=== PATIENT | male | born 1965 | race Caucasian/White ===

== ENCOUNTER 2020-07-19 13:40 | Outpatient (CLI) | payer OTHER ==
--- NOTE | 2020-07-19 18:57 | ULT ---
BILATERAL LOWER EXTREMITY ARTERIAL DOPPLER STUDY: 07/19/20 INDICATIONS: Claudication. Lower extremity pain. RIGHT LOWER EXTREMITY: Right common femoral artery shows a biphasic waveform with slightly reduced velocities at 88 cm/s sys tolic. Profunda shows significant increased velocities indicating stenosis with a biphasic waveform. The right superficial femoral artery is monophasic throughout its course with reduced velocities. Right popliteal artery, anterior tibial artery, posterior tibial artery, and dorsalis pedis all show monophasic waveform with reduced velocities. LEFT LOWER EXTREMITY: Left common femoral artery shows a biphasic waveform with velocities recorded at 137 cm/s systolic. Profunda is biphasic. The left superficial femoral artery is triphasic with symmetric velocities. Left popliteal artery is triphasic. The left anterior tibial artery and dorsalis pedis artery are both monophasic with reduced velocities . The left posterior tibial artery is triphasic with normal velocities recorded at 96 cm/s systolic. IMPRESSION: 1. Doppler study shows evidence of significant peripheral vascular disease in the right lower ex tremity with evidence of proximal stenosis. Iliac artery disease should be considered. 2. The left lower extremity shows mild disease below the knee on the left primarily involving th e anterior tibial artery as described above. POS: [facility]W
== END 2020-07-19 13:41 | disposition home or self-care (01) ==
LOC: ULT 13:40
PROVIDERS: ATTEND General Practice
DX: I70.211 Atherosclerosis of native arteries of extremities with intermittent claudication, right leg (principal)
CPT/HCPCS: 93923

== ENCOUNTER 2020-11-28 11:01 | Outpatient (CLI) | payer OTHER | END 2020-11-28 11:02 | disposition home or self-care (01) | LOC: BICMRI 11:01 | PROVIDERS: ATTEND Orthopaedic Surgery | DX: M47.816 Spondylosis without myelopathy or radiculopathy, lumbar region (principal) | CPT/HCPCS: 72148 ==

== ENCOUNTER 2020-12-06 08:01 | Outpatient (CLI) | payer OTHER ==
[2020-12-06] MEDS ORDERED: Iopamidol-370 76% 500 ML 1 ML ONE (13:38)
== END 2020-12-06 08:02 | disposition home or self-care (01) ==
LOC: BICCT 08:01
PROVIDERS: ATTEND Internal Medicine Cardiovascular Disease
DX: I73.9 Peripheral vascular disease, unspecified (principal); I71.4 Abdominal aortic aneurysm, without rupture; I77.1 Stricture of artery; K80.20 Calculus of gallbladder without cholecystitis without obstruction; K42.9 Umbilical hernia without obstruction or gangrene
CPT/HCPCS: 75635; Q9967

== ENCOUNTER 2021-02-22 11:17 | Emergency (ER) | payer OTHER ==
[2021-02-22 12:12] LABS: #Basophils 0.1 thou/uL (0.0-0.2); #Eosinphils 0.1 thou/uL (0.0-0.7); #Lymphocytes 2.1 thou/uL (1.20-3.40); #Monocytes 0.9 thou/uL (0.11-0.59); #Neutrophils 7.2 thou/uL (1.40-6.50); %Basophils 0.8 % (0.0-1.0); %Eosinophils 1.2 % (0.0-10.0); %Lymphocytes 20.3 % (21.0-51.0); %Monocytes 8.7 % (0.0-10.0); Hemoglobin 14.6 g/dL (14.0-18.0); Mean Corpuscular HGB CONC 32.8 g/dL (32.0-36.0); Mean Corpuscular Hemoglobin 30.1 pg (27.0-31.0); Mean Corpuscular Volume 91.5 fL (78.0-98.0); Mean Platelet Volume 8.9 fL (7.4-10.4); Platelet Count 188 thou/uL (130-400); RBC Distribution Width 12.4 % (11.5-14.5); Red Blood Cell (RBC) Count 4.87 mill/uL (4.70-6.10); White Blood Cell (WBC) Count 10.4 thou/uL (4.8-10.8)
[2021-02-22 12:32] LABS: ALT (SGPT) 31 U/L (8-55); AST (SGOT) 23 U/L (5-34); Albumin 4.2 g/dL (3.5-5.0); Alkaline Phosphatase 69 U/L (40-110); Anion Gap 10 mmol/L (10-20); BUN (Urea Nitrogen) 11 mg/dL (8.4-25.7); Bilirubin, Total 0.5 mg/dL (0.2-1.2); Calc. Creatinine Clearance 0 mL/min (70-130); Calcium 9.6 mg/dL (7.8-10.44); Carbon Dioxide 26 mmol/L (22-29); Chloride 104 mmol/L (98-107); Globulin 2.9 g/dL (2.4-3.5); Glucose 104 mg/dL (70-105); Potassium 4.1 mmol/L (3.5-5.1); Protein, Total 7.1 g/dL (6.0-8.3); Sodium 136 mmol/L (136-145)
[2021-02-22] MEDS ORDERED: HYDROcodone/Acetaminophen 5/325 mg Tablet ONE (12:32)
[2021-02-22] MEDS ORDERED: Boostrix 0.5 ML (Tdap) VIAL ONE (12:32)
== END 2021-02-22 13:00 | disposition home or self-care (01) ==
LOC: ERS 11:17
DX: K04.7 Periapical abscess without sinus (principal); M54.2 Cervicalgia; K02.9 Dental caries, unspecified; K03.81 Cracked tooth; H57.11 Ocular pain, right eye; I10 Essential (primary) hypertension; F17.210 Nicotine dependence, cigarettes, uncomplicated; Z79.899 Other long term (current) drug therapy
CPT/HCPCS: 36415; 80053; 83605; 85025; 90471; 90715; 93005; 94760

== ENCOUNTER 2021-04-24 12:24 | Outpatient (CLI) | payer OTHER ==
[2021-04-24 13:35] LABS: Mean Corpuscular HGB CONC 33.5 g/dL (32.0-36.0); Mean Corpuscular Hemoglobin 29.9 pg (27.0-33.0); Mean Corpuscular Volume 89.2 fl (81.2-95.1); Mean Platelet Volume 11.5 fl (7.4-10.4); Platelet Count 189 10x3/uL (150-450); RBC Distribution Width 13.3 % (11.5-14.5); Red Blood Cell (RBC) Count 5.02 10x6/uL (4.32-5.72); White Blood Cell (WBC) Count 12.6 10x3/uL (3.5-10.5)
[2021-04-24 13:52] LABS: Anion Gap 15 mmol/L (10-20); BUN (Urea Nitrogen) 16 mg/dL (8.4-25.7); Calc. Creatinine Clearance 0 mL/min (70-130); Calcium 10.4 mg/dL (7.8-10.44); Carbon Dioxide 26 mmol/L (22-29); Chloride 104 mmol/L (98-107); Glucose 118 mg/dL (70-105); Potassium 4.7 mmol/L (3.5-5.1); Sodium 140 mmol/L (136-145)
[2021-04-24 23:48] LABS: SARS-CoV-2 PCR by NAA Not Detected (NotDetected)
== END 2021-04-24 12:25 | disposition home or self-care (01) ==
LOC: LABBT 12:24
PROVIDERS: ATTEND Thoracic Surgery (Cardiothoracic Vascular Surgery)
DX: Z01.812 Encounter for preprocedural laboratory examination (principal); I73.9 Peripheral vascular disease, unspecified; Z20.822 Contact with and (suspected) exposure to COVID-19
CPT/HCPCS: 80048; 85027; U0003; U0005

== ENCOUNTER 2021-04-27 10:10 | Day surgery (SDC) | payer OTHER ==
[2021-04-26 10:03] VITALS: BMI 32.3
[2021-04-27] MEDS ORDERED: Lidocaine 1% (PF) 30 ML VIAL ONE (11:13)
[2021-04-27] MEDS ORDERED: Midazolam HCl 2 mg/2 ml Vial ONE ×2 (11:32→12:07)
[2021-04-27] MEDS ORDERED: Fentanyl 100 MCG/2 ML VIAL ONE ×2 (11:32→12:58)
[2021-04-27] MEDS ORDERED: Heparin 10,000 UNITS/ 10 ML VIAL ONE (12:03)
[2021-04-28] MEDS ORDERED: Clopidogrel Bisulfate 75 MG TAB PO SCH (09:00)
== END 2021-04-27 16:00 | disposition home or self-care (01) ==
LOC: SDC 10:10
PROVIDERS: ATTEND Thoracic Surgery (Cardiothoracic Vascular Surgery)
PROC: 047K34Z Dilation of Right Femoral Artery with Drug-eluting Intraluminal Device, Percutaneous Approach (ICD-10-PCS; principal; 2021-04-27)
PROC: B4101ZZ Fluoroscopy of Abdominal Aorta using Low Osmolar Contrast (ICD-10-PCS; principal; 2021-04-27)
DX: I70.211 Atherosclerosis of native arteries of extremities with intermittent claudication, right leg (principal); I71.4 Abdominal aortic aneurysm, without rupture; E78.00 Pure hypercholesterolemia, unspecified; M10.9 Gout, unspecified; I25.2 Old myocardial infarction; I10 Essential (primary) hypertension; I25.10 Atherosclerotic heart disease of native coronary artery without angina pectoris; F17.210 Nicotine dependence, cigarettes, uncomplicated; E78.2 Mixed hyperlipidemia; Z79.82 Long term (current) use of aspirin; Z79.899 Other long term (current) drug therapy
CPT/HCPCS: 36140; 36247; 37224; 75625; 75710; 85347; 99152; 99153; C1725; J1644; J2001; J2250; J3010

== ENCOUNTER 2021-06-20 12:02 | Outpatient (CLI) | payer OTHER | END 2021-06-20 12:03 | disposition home or self-care (01) | LOC: TBSIIMAG 12:02 | PROVIDERS: ATTEND Specialist | DX: M47.22 Other spondylosis with radiculopathy, cervical region (principal) | CPT/HCPCS: 72141 ==

== ENCOUNTER 2021-12-18 10:23 | Emergency (ER) | payer OTHER ==
[2021-12-18 10:55] LABS: #Basophils 0.1 thou/uL (0.0-0.2); #Eosinphils 0.1 thou/uL (0.0-0.7); #Lymphocytes 1.5 thou/uL (1.20-3.40); #Monocytes 0.8 thou/uL (0.11-0.59); #Neutrophils 7.3 thou/uL (1.40-6.50); %Basophils 0.5 % (0.0-1.0); %Eosinophils 1.3 % (0.0-10.0); %Neutrophils 75.2 % (42.0-75.0); Hemoglobin 14.8 g/dL (14.0-18.0); Mean Corpuscular HGB CONC 33.3 g/dL (32.0-36.0); Mean Corpuscular Hemoglobin 31.3 pg (27.0-31.0); Mean Corpuscular Volume 94.2 fL (78.0-98.0); Mean Platelet Volume 8.1 fL (7.4-10.4); Platelet Count 213 thou/uL (130-400); RBC Distribution Width 12.6 % (11.5-14.5); Red Blood Cell (RBC) Count 4.73 mill/uL (4.70-6.10); White Blood Cell (WBC) Count 9.7 thou/uL (4.8-10.8)
[2021-12-18 11:17] LABS: ALT (SGPT) 35 U/L (8-55); AST (SGOT) 31 U/L (5-34); Albumin 4.4 g/dL (3.5-5.0); Alkaline Phosphatase 54 U/L (40-110); Anion Gap 13 mmol/L (10-20); BUN (Urea Nitrogen) 17 mg/dL (8.4-25.7); Bilirubin, Total 0.4 mg/dL (0.2-1.2); Calc. Creatinine Clearance 0 mL/min (70-130); Calcium 9.6 mg/dL (7.8-10.44); Carbon Dioxide 23 mmol/L (22-29); Chloride 105 mmol/L (98-107); Glucose 107 mg/dL (70-105); Lipase 58 U/L (8-78); Potassium 4.7 mmol/L (3.5-5.1); Protein, Total 7.4 g/dL (6.0-8.3); Sodium 136 mmol/L (136-145)
[2021-12-18] MEDS ORDERED: Famotidine 20 MG TAB ONE (12:47)
[2021-12-18] MEDS ORDERED: Dicyclomine 20 MG TAB ONE (12:48)
== END 2021-12-18 13:06 | disposition home or self-care (01) ==
LOC: ERS 10:23
DX: R19.7 Diarrhea, unspecified (principal); M54.50 Low back pain, unspecified; G89.29 Other chronic pain; I25.2 Old myocardial infarction; R73.03 Prediabetes; K21.9 Gastro-esophageal reflux disease without esophagitis; E78.00 Pure hypercholesterolemia, unspecified; E78.5 Hyperlipidemia, unspecified; I10 Essential (primary) hypertension; F17.210 Nicotine dependence, cigarettes, uncomplicated; Z79.899 Other long term (current) drug therapy; Z79.02 Long term (current) use of antithrombotics/antiplatelets; Z79.82 Long term (current) use of aspirin
CPT/HCPCS: 36415; 80053; 83690; 85025; 99284

== ENCOUNTER 2022-11-16 15:25 | Emergency (ER) | payer SELFPAY ==
[2022-11-16] MEDS ORDERED: Cyclobenzaprine 10 MG TAB ONE (15:57)
[2022-11-16] MEDS ORDERED: Ketorolac Tromethamine 30 MG/ML VIAL ONE (15:57)
== END 2022-11-16 18:17 | disposition home or self-care (01) ==
LOC: ERS 15:25
DX: S09.90XA Unspecified injury of head, initial encounter (principal); M54.2 Cervicalgia; K21.9 Gastro-esophageal reflux disease without esophagitis; E78.00 Pure hypercholesterolemia, unspecified; I10 Essential (primary) hypertension; F17.210 Nicotine dependence, cigarettes, uncomplicated; Y04.8XXA Assault by other bodily force, initial encounter; Z79.899 Other long term (current) drug therapy; Z79.82 Long term (current) use of aspirin
CPT/HCPCS: 70450; 72125; 96372; J1885